=== PATIENT | female | born 1970 | race African-American/Black ===

== ENCOUNTER 2017-11-23 01:00 | Inpatient (IN) | payer MEDICAID ==
[~2017-11-23] VITALS: Ht 170.2 cm; Wt 110.6 kg
[2017-11-23 01:53] LABS: Basophils # (auto) 0.1 uL; Basophils % (auto) 0.7 % (0.0-2.0); Eosinophils # (auto) 0.2 uL; Eosinophils % (auto) 1.8 % (0.0-7.0); Hematocrit 41.1 % (36.0-46.0); Hemoglobin 13.4 g/dL (12.2-16.2); Lymphocytes # (auto) 2.3 uL; Lymphocytes % (auto) 24.6 % (10.0-50.0); Mean Corpuscular Hemoglobin 28.4 pg (28.0-32.0); Mean Corpuscular Hgb Conc. 32.6 g/dL (32.0-36.0); Monocytes # (auto) 0.6 uL; Neutrophils # (auto) 6.1 uL; Neutrophils % (auto) 65.9 % (37.0-80.0); Nucleated Red Blood Cells % 0.1 %; Platelet Count (auto) 250 10^3/uL (140-450); Red Blood Cells 4.73 10^6/uL (4.0-5.20); Red Cell Distribution Width 14.2 % (11.8-14.3); White Blood Cell 9.2 10^3/uL (4.4-10.8)
[2017-11-23 02:11] LABS: Albumin 3.7 g/dL (3.4-5.0); BUN/Creatinine Ratio 12.6; Calcium 8.6 mg/dL (8.5-10.1); Magnesium 2.1 mg/dL (1.6-2.6); Potassium 3.7 mmol/L (3.5-5.1)
[2017-11-23 02:28] LABS: Bilirubin, Total 0.3 mg/dL (0.2-1.0); Total Protein 8.3 g/dL (6.4-8.2)
[2017-11-23] MEDS ORDERED: ASPirin-EC 325mg tab PO ONE (03:15)
[2017-11-23] MEDS ORDERED: ONDANSETRON HCL 4 MG/2 ML VIAL ONE (03:25)
[2017-11-23] MEDS ORDERED: MORPHINE SULFATE 4 MG/ML SYR/VIAL ONE (03:25)
[2017-11-23] MEDS ORDERED: ONDANSETRON HCL 4 MG/2 ML VIAL IV ONE (03:30)
[2017-11-23] MEDS ORDERED: MORPHINE SULFATE 4 MG/ML SYR/VIAL IV ONE ×2 (03:30→04:45)
[2017-11-23] MEDS ORDERED: NITROGLYCERIN 0.4 MG SL TAB SL ONE (04:45)
[2017-11-23] MEDS ORDERED: METOPROLOL TARTRATE 25 MG TAB PO ONE (06:30)
[2017-11-23] MEDS ORDERED: MORPHINE SULF INJ 2 MG/ML SYRINGE 1ML IV PRN (06:30)
[2017-11-23] MEDS ORDERED: ONDANSETRON HCL 4 MG/2 ML VIAL IV PRN (06:30)
[2017-11-23] MEDS ORDERED: ACETAMINOPHEN 325 MG TAB PO PRN (06:30)
[2017-11-23] MEDS ORDERED: TEMAZEPAM 15 MG CAP PO PRN (06:30)
[2017-11-23] MEDS ORDERED: ATORVASTATIN 20 MG TAB PO ONE (06:30)
[2017-11-23] MEDS ORDERED: DEXTROSE (50%) 50ML SYRG IV PRN (06:30)
[2017-11-23] MEDS ORDERED: ENOXAPARIN SOD 120 MG/0.8 ML SYRINGE SC SCH (07:00)
[2017-11-23] MEDS: SODIUM CHLORIDE 0.9% 1,000 ML IV SCH ×2 (07:02→19:45)
[2017-11-23 07:26] LABS: Urine Blood TRACE /uL (Negative); Urine Mucus FEW (None Seen); Urine Specific Gravity 1.019 (1.001-1.035); Urine WBC 304 /hpf (0 - 5)
[2017-11-23 08:21] LABS: Urine Bacteria MANY /hpf (None Seen)
[2017-11-23] MEDS: METOPROLOL TARTRATE 25 MG TAB PO SCH ×2 (10:04→21:53)
[2017-11-23] MEDS: PANTOPRAZOLE 40 MG TAB PO SCH (10:04)
[2017-11-23] MEDS ORDERED: IODIXANOL 320MG/ML 100ML BTL IV ONE (10:31)
[2017-11-23] MEDS ORDERED: LIDOCAINE 2%HCL (LOCAL ANESTH.) INJ 10ml MDV ONE (10:31)
[2017-11-23] MEDS ORDERED: IOHEXOL 350 MG/ML 100ML IJ ONE (10:45)
[2017-11-23] MEDS ORDERED: MIDAZOLAM HCL 1MG/1ML-2 ML VIAL ONE (10:45)
[2017-11-23] MEDS ORDERED: ANGIOMAX 250 MG VIAL IV ONE ×2 (10:45→12:05)
[2017-11-23] MEDS ORDERED: SODIUM CHL 0.9% 50 ML ONE ×2 (10:45→12:05)
[2017-11-23] MEDS ORDERED: fentaNYL CITRATE 100 MCG/2 ML VL ONE (10:45)
[2017-11-23] MEDS ORDERED: EPINEPHrine HCL 1 MG/10 ML SYRG ONE (11:26)
[2017-11-23] MEDS ORDERED: ATROPINE SULF 1 MG/10ml SYR ONE (11:27)
[2017-11-23] MEDS ORDERED: EPTIFIBATIDE INJ (2MG/ML) 10ML VIAL IV ONE (11:27)
[2017-11-23] MEDS: InsuLIN REG 1unit/0.01ml Soln (100units/ml) SC SCH ×3 (12:00→23:36)
[2017-11-23] MEDS ORDERED: CLOPIDOGREL 300 MG TAB ONE (12:02)
[2017-11-23] MEDS: ACCU-CHEK COMFORT CURVE STRIP VI SCH ×3 (12:21→23:35)
[2017-11-23] MEDS ORDERED: cefTRIAXone 1GM/10ml IVPUSH 10 ML IV ONE (13:00)
[2017-11-23] MEDS ORDERED: OPTISON 3ml Vial for INJ IV ONE (14:23)
[2017-11-23] MEDS: HYDROcodone-ACET 5/325MG TAB PO PRN ×2 (17:31→22:02)
[2017-11-23] MEDS ORDERED: INSLISPI SC (18:00)
[2017-11-23] MEDS ORDERED: GLIP-116 PO (18:00)
[2017-11-23] MEDS ORDERED: METF-929 PO (18:00)
[2017-11-23 20:00] VITALS: BP 138/79
[2017-11-23 22:00] VITALS: BP 139/79
[2017-11-23] MEDS ORDERED: ATORVASTATIN 20 MG TAB PO SCH ×2 (22:00)
[2017-11-23] MEDS: NITROGLYCERIN 0.4 MG SL TAB SL PRN ×2 (22:40→22:45)
[2017-11-24 05:00] VITALS: BP 100/67
[2017-11-24 05:56] LABS: Basophils # (auto) 0 uL; Basophils % (auto) 0.4 % (0.0-2.0); Eosinophils # (auto) 0.1 uL; Eosinophils % (auto) 0.6 % (0.0-7.0); Hematocrit 37.9 % (36.0-46.0); Hemoglobin 12.4 g/dL (12.2-16.2); Lymphocytes # (auto) 1.8 uL; Lymphocytes % (auto) 19.6 % (10.0-50.0); Mean Corpuscular Hgb Conc. 32.8 g/dL (32.0-36.0); Mean Corpuscular Volume 88.6 fL (80.0-100.0); Monocytes # (auto) 0.5 uL; Monocytes % (auto) 5.9 % (0.0-12.0); Neutrophils # (auto) 6.7 uL; Neutrophils % (auto) 73.5 % (37.0-80.0); Platelet Count (auto) 223 10^3/uL (140-450); Red Blood Cells 4.28 10^6/uL (4.0-5.20); Red Cell Distribution Width 14.4 % (11.8-14.3); White Blood Cell 9.1 10^3/uL (4.4-10.8)
[2017-11-24 06:23] LABS: Albumin 3.2 g/dL (3.4-5.0); BUN/Creatinine Ratio 18.2; Calcium 8.1 mg/dL (8.5-10.1); Potassium 4.1 mmol/L (3.5-5.1)
[2017-11-24 06:27] LABS: Bilirubin, Total 0.5 mg/dL (0.2-1.0); Total Protein 7.1 g/dL (6.4-8.2)
[2017-11-24] MEDS: ACCU-CHEK COMFORT CURVE STRIP VI SCH ×2 (06:28→11:23)
[2017-11-24] MEDS: InsuLIN REG 1unit/0.01ml Soln (100units/ml) SC SCH ×2 (06:28→12:17)
[2017-11-24 08:00] VITALS: BP 114/71
[2017-11-24 09:00] VITALS: BP 114/71
[2017-11-24] MEDS ORDERED: cefTRIAXone 1GM/10ml IVPUSH 10 ML IV SCH (09:00)
[2017-11-24] MEDS: SODIUM CHLORIDE 0.9% 1,000 ML IV SCH (09:05)
[2017-11-24] MEDS: PANTOPRAZOLE 40 MG TAB PO SCH (09:07)
[2017-11-24] MEDS: METOPROLOL TARTRATE 25 MG TAB PO SCH (09:08)
[2017-11-24] MEDS ORDERED: LISINOPRIL 5 MG TAB PO SCH (10:00)
[2017-11-24] MEDS ORDERED: CLOPIDOGREL BISULFATE 75 MG TAB PO SCH (10:00)
[2017-11-24] MEDS ORDERED: ENOXAPARIN SOD 40 MG/0.4 ML SYRINGE SC SCH (10:00)
[2017-11-24] MEDS ORDERED: ASPirin 81 mg TAB PO SCH (10:00)
[2017-11-24] MEDS ORDERED: ASPI81CH43 PO (11:40)
[2017-11-24] MEDS ORDERED: PANT40T PO (11:40)
[2017-11-24] MEDS ORDERED: LISI-275 PO (11:40)
[2017-11-24] MEDS ORDERED: NITR0.4S29 SL (11:40)
[2017-11-24] MEDS ORDERED: MET25T PO (11:40)
[2017-11-24] MEDS ORDERED: ATOR20TA50 PO (11:40)
[2017-11-24] MEDS ORDERED: LEVOFLOXACIN 500 MG TAB PO ONE (11:45)
[2017-11-24] MEDS: HYDROcodone-ACET 5/325MG TAB PO PRN (12:25)
[2017-11-24 13:00] VITALS: BP 112/74
[2017-11-24 16:36] VITALS: BP 121/79
== END 2017-11-24 17:12 | disposition home or self-care (01) | DRG 174 ==
LOC: ER 01:03 → TELE 01:04 → TELE-WESTW 17:23
PROVIDERS: ADMIT Nurse Practitioner; ATTEND Internal Medicine
PROC: 027034Z Dilation of Coronary Artery, One Artery with Drug-eluting Intraluminal Device, Percutaneous Approach (ICD-10-PCS; principal; 2017-11-23)
PROC: 4A023N7 Measurement of Cardiac Sampling and Pressure, Left Heart, Percutaneous Approach (ICD-10-PCS; 2017-11-23)
PROC: B2111ZZ Fluoroscopy of Multiple Coronary Arteries using Low Osmolar Contrast (ICD-10-PCS; 2017-11-23)
PROC: B2151ZZ Fluoroscopy of Left Heart using Low Osmolar Contrast (ICD-10-PCS; 2017-11-23)
PROC: 02703ZZ Dilation of Coronary Artery, One Artery, Percutaneous Approach (ICD-10-PCS; 2017-11-23)
DX: I21.4 Non-ST elevation (NSTEMI) myocardial infarction (principal); I50.31 Acute diastolic (congestive) heart failure; E11.65 Type 2 diabetes mellitus with hyperglycemia; E11.21 Type 2 diabetes mellitus with diabetic nephropathy; E66.01 Morbid (severe) obesity due to excess calories; I11.0 Hypertensive heart disease with heart failure; I08.0 Rheumatic disorders of both mitral and aortic valves; N39.0 Urinary tract infection, site not specified; J98.11 Atelectasis; I25.119 Atherosclerotic heart disease of native coronary artery with unspecified angina pectoris; I25.5 Ischemic cardiomyopathy; I25.2 Old myocardial infarction; Z82.49 Family history of ischemic heart disease and other diseases of the circulatory system; Z91.19 Patient's noncompliance with other medical treatment and regimen; Z88.0 Allergy status to penicillin; Z68.38 Body mass index [BMI] 38.0-38.9, adult
CPT/HCPCS: 36415; 71045; 80053; 81001; 81025; 82962; 83735; 83880; 84484; 85025; 87086; 92921; 92928; 93005; 93306; 93458; 96372; 96374; 96375; 96376; 99152; 99291; A6257; C1874; J1815; J2001; J2250; J2405; Q9956; Q9967

== ENCOUNTER 2021-09-21 13:10 | Inpatient (IN) | payer MEDICAID ==
[~2021-09-21] VITALS: Ht 170.2 cm; Wt 118.5 kg
[~2021-09-21 13:10] MED LIST: ASPI81CH43 PO; ATOR20TA50 PO; GLIP10TA9 PO; INSLISPI SC; LISI-275 PO; MET25T PO; METF-929 PO; NITR0.4S29 SL; PANT40T PO
[2021-09-21] MEDS ORDERED: ASPirin 81 mg TAB PO ONE (14:00)
[2021-09-21] MEDS ORDERED: ENOXAPARIN SOD 100 MG/1 ML SYRINGE SC ONE (14:00)
[2021-09-21 15:32] LABS: Basophils # (auto) 0.1 10 ^3/uL (0-0.2); Basophils % (auto) 0.6 % (0.0-2.0); Eosinophils # (auto) 0.1 10 ^3/uL (0-0.8); Eosinophils % (auto) 1.7 % (0.0-7.0); Hematocrit 41.3 % (36.0-46.0); Hemoglobin 13.8 g/dL (12.2-16.2); Lymphocytes # (auto) 2.4 10 ^3/uL (0.4-5.4); Lymphocytes % (auto) 27.7 % (10.0-50.0); Mean Corpuscular Hemoglobin 28.4 pg (28.0-32.0); Mean Corpuscular Hgb Conc. 33.4 g/dL (32.0-36.0); Mean Corpuscular Volume 85.1 fL (80.0-100.0); Monocytes # (auto) 0.6 10 ^3/uL (0-1.3); Monocytes % (auto) 7.4 % (0.0-12.0); Neutrophils # (auto) 5.4 10 ^3/uL (1.6-8.6); Neutrophils % (auto) 62.6 % (37.0-80.0); Nucleated Red Blood Cells % 0.1 %; Red Blood Cells 4.85 10^6/uL (4.0-5.20); Red Cell Distribution Width 13.9 % (11.8-14.3); White Blood Cell 8.6 10^3/uL (4.4-10.8)
[2021-09-21 15:46] LABS: Albumin 3.9 g/dL (3.4-5.0); BUN/Creatinine Ratio 22.5; Calcium 9.5 mg/dL (8.5-10.1); Potassium 3.7 mmol/L (3.5-5.1)
[2021-09-21 15:47] LABS: INR 1.05 (0.9-1.15); Partial Thromboplastin Time 27.3 sec (23.6-33.0)
[2021-09-21 15:49] LABS: Bilirubin, Total 0.4 mg/dL (0.2-1.0); Total Protein 8.6 g/dL (6.4-8.2)
[2021-09-21] MEDS ORDERED: MORPHINE SULFATE 4 MG/ML SYR/VIAL IV ONE ×2 (17:00→20:15)
[2021-09-21] MEDS ORDERED: HEPARIN DRIP/D5W 100UNITS/ML 250 ML IV SCH (17:00)
[2021-09-21] MEDS ORDERED: HEPARIN SODIUM (PORCINE) 5000 UNITS/ML 1ML VIAL IV ONE (17:00)
[2021-09-21] MEDS: HEPARIN DRIP/D5W 100UNITS/ML 250 ML IV SCH (18:05)
[2021-09-21 19:29] LABS: Urine Bacteria FEW /hpf (None Seen); Urine Blood Negative /uL (Negative); Urine Hyaline Cast FEW /lpf (0 - 2); Urine Specific Gravity 1.029 (1.001-1.035); Urine WBC 38 /hpf (0 - 5)
[2021-09-21] MEDS ORDERED: diphenhdrAMINE HCL 50 MG/1 ML VL IV ONE (21:45)
[2021-09-21] MEDS ORDERED: MORPHINE SULFATE INJ 2 MG/ml SYRG IV PRN (22:45)
[2021-09-21] MEDS ORDERED: DOCUSATE SOD 100 MG CAP PO PRN (22:45)
[2021-09-21] MEDS ORDERED: DEXTROSE (50%) 50ML SYRG IV PRN (22:45)
[2021-09-21] MEDS ORDERED: NITROGLYCERIN 0.4 MG SL TAB SL PRN (22:45)
[2021-09-21] MEDS: SODIUM CHLORIDE 0.9% 1,000 ML IV SCH (23:46)
[2021-09-22] MEDS ORDERED: levoFLOXacin 500MG 100 ML IV ONE
[2021-09-22 03:02] LABS: Basophils # (auto) 0 10 ^3/uL (0-0.2); Basophils % (auto) 0.5 % (0.0-2.0); Eosinophils # (auto) 0.1 10 ^3/uL (0-0.8); Eosinophils % (auto) 1.2 % (0.0-7.0); Hematocrit 39.7 % (36.0-46.0); Hemoglobin 13.2 g/dL (12.2-16.2); Lymphocytes % (auto) 18.5 % (10.0-50.0); Mean Corpuscular Hemoglobin 28.8 pg (28.0-32.0); Mean Corpuscular Hgb Conc. 33.3 g/dL (32.0-36.0); Mean Corpuscular Volume 86.5 fL (80.0-100.0); Monocytes # (auto) 0.7 10 ^3/uL (0-1.3); Monocytes % (auto) 6.8 % (0.0-12.0); Neutrophils # (auto) 7.9 10 ^3/uL (1.6-8.6); Nucleated Red Blood Cells % 0.2 %; Red Blood Cells 4.58 10^6/uL (4.0-5.20); Red Cell Distribution Width 13.9 % (11.8-14.3); White Blood Cell 10.8 10^3/uL (4.4-10.8)
[2021-09-22 04:35] LABS: Albumin 3.6 g/dL (3.4-5.0); Anion Gap 10 (5-15); Blood Urea Nitrogen 21 mg/dL (7-18); Carbon Dioxide 19 mmol/L (21-32); Chloride 107 mmol/L (98-107); Glucose 235 mg/dL (74-106); Potassium 4.2 mmol/L (3.5-5.1); Sodium 136 mmol/L (136-145)
[2021-09-22 04:37] LABS: Alanine Aminotransferase 37 U/L (13-56); Aspartate Aminotransferase 69 U/L (15-37); BUN/Creatinine Ratio 25.3; GFR African American 94 mL/min; GFR Non-African American 77 mL/min
[2021-09-22 04:40] LABS: Alkaline Phosphatase 91 U/L (45-117); Bilirubin, Total 0.3 mg/dL (0.2-1.0); Total Protein 7.9 g/dL (6.4-8.2)
[2021-09-22] MEDS ORDERED: HEPARIN SODIUM (PORCINE) 5000 UNITS/ML 1ML VIAL ONE (06:52)
[2021-09-22] MEDS: InsuLIN REG 1unit/0.01ml Soln (100units/ml) SC SCH ×4 (08:07→21:37)
[2021-09-22] MEDS: FAMOTIDINE (10MG/ML) 2ML VL IV SCH ×2 (08:08→21:45)
[2021-09-22] MEDS: ASPirin 81 mg TAB PO SCH (08:08)
[2021-09-22] MEDS: levoFLOXacin 500MG 100 ML IV SCH (08:08)
[2021-09-22] MEDS: ACCU-CHEK COMFORT CURVE STRIP VI SCH ×4 (08:08→21:45)
[2021-09-22] MEDS: HYDROcodone-ACET 5/325MG TAB PO PRN (08:09)
[2021-09-22] MEDS: MORPHINE SULFATE INJ 2 MG/ml SYRG IV PRN ×2 (13:01→17:48)
[2021-09-22] MEDS: HEPARIN DRIP/D5W 100UNITS/ML 250 ML IV SCH (13:03)
[2021-09-22] MEDS: diphenhdrAMINE HCL 50 MG/1 ML VL IV PRN ×2 (13:04→17:49)
[2021-09-22 14:16] LABS: INR 1.06 (0.9-1.15); Partial Thromboplastin Time 51.9 sec (23.6-33.0)
[2021-09-22] MEDS: SODIUM CHLORIDE 0.9% 1,000 ML IV SCH (16:42)
[2021-09-22] MEDS ORDERED: guaiFENesin-DM 100/10mg/5ml SYR PO PRN (16:45)
[2021-09-22] MEDS: NITROGLYCERIN 0.2MG/HR TOPICAL PATCH TD SCH (17:48)
[2021-09-22 19:13] LABS: INR 1.05 (0.9-1.15)
[2021-09-22] MEDS: ATORVASTATIN 20 MG TAB PO SCH (21:44)
[2021-09-23] VITALS (7 sets, daily range): BP systolic 118–135; BP diastolic 67–79
[2021-09-23 07:09] LABS: BUN/Creatinine Ratio 12.6; Calcium 8.9 mg/dL (8.5-10.1); Potassium 3.9 mmol/L (3.5-5.1)
[2021-09-23] MEDS: ACCU-CHEK COMFORT CURVE STRIP VI SCH ×4 (07:10→21:20)
[2021-09-23] MEDS: InsuLIN REG 1unit/0.01ml Soln (100units/ml) SC SCH ×4 (07:50→21:29)
[2021-09-23] MEDS: SODIUM CHLORIDE 0.9% 1,000 ML IV SCH ×2 (08:05→21:34)
[2021-09-23] MEDS: ACETAMINOPHEN 325 MG TAB PO PRN (10:43)
[2021-09-23] MEDS: ASPirin 81 mg TAB PO SCH (10:43)
[2021-09-23] MEDS: levoFLOXacin 500MG 100 ML IV SCH (10:43)
[2021-09-23] MEDS: FAMOTIDINE (10MG/ML) 2ML VL IV SCH ×2 (10:44→21:21)
[2021-09-23] MEDS: ONDANSETRON HCL 4 MG/2 ML VIAL IV PRN ×2 (10:46→19:03)
[2021-09-23] MEDS: MORPHINE SULFATE INJ 2 MG/ml SYRG IV PRN (10:56)
[2021-09-23] MEDS: diphenhdrAMINE HCL 50 MG/1 ML VL IV PRN (11:00)
[2021-09-23] MEDS ORDERED: IODIXANOL 320MG/ML 100ML BTL IV ONE (12:24)
[2021-09-23] MEDS ORDERED: LIDOCAINE 2%HCL (LOCAL ANESTH.) INJ 10ml MDV ONE ×2 (12:24→13:25)
[2021-09-23] MEDS ORDERED: IOHEXOL 350 MG/ML 100ML IJ ONE (13:25)
[2021-09-23] MEDS ORDERED: ANGIOMAX 250 MG VIAL IV ONE (13:31)
[2021-09-23] MEDS ORDERED: SODIUM CHL 0.9% 50 ML ONE (13:31)
[2021-09-23] MEDS ORDERED: MIDAZOLAM HCL 2MG/2ML 2ml VIAL (1mg/ml) ONE (13:31)
[2021-09-23] MEDS ORDERED: fentaNYL CITRATE 100 MCG/2 ML VL ONE (13:31)
[2021-09-23] MEDS ORDERED: TICAGRELOR 90 MG TAB ONE (14:19)
[2021-09-23] MEDS: HYDROmorphone HCL 2 MG/ML VL/or syr IV PRN (14:46)
[2021-09-23] MEDS ORDERED: METO25TA5 PO (17:33)
[2021-09-23] MEDS ORDERED: AMLO-489 PO (17:33)
[2021-09-23] MEDS ORDERED: ALBU108A5 IN (17:33)
[2021-09-23] MEDS ORDERED: FLUC150T2 PO (17:33)
[2021-09-23] MEDS ORDERED: PREG150C PO (17:33)
[2021-09-23] MEDS ORDERED: INSLISPI SC (17:33)
[2021-09-23] MEDS: NITROGLYCERIN 0.2MG/HR TOPICAL PATCH TD SCH (17:43)
[2021-09-23] MEDS ORDERED: HYDROmorphone HCL 2 MG/ML VL/or syr IV ONE (18:45)
[2021-09-23] MEDS: TICAGRELOR 90 MG TAB PO SCH (21:24)
[2021-09-23] MEDS: ATORVASTATIN 20 MG TAB PO SCH (21:24)
[2021-09-24] MEDS: ONDANSETRON HCL 4 MG/2 ML VIAL IV PRN (01:02)
[2021-09-24] MEDS: HYDROmorphone HCL 2 MG/ML VL/or syr IV PRN ×3 (01:04→18:49)
[2021-09-24 05:00] VITALS: BP 136/75
[2021-09-24] MEDS: ACCU-CHEK COMFORT CURVE STRIP VI SCH ×4 (06:15→21:25)
[2021-09-24] MEDS: InsuLIN REG 1unit/0.01ml Soln (100units/ml) SC SCH ×4 (06:15→21:44)
[2021-09-24 08:06] LABS: Magnesium 2.2 mg/dL (1.6-2.6)
[2021-09-24 09:00] VITALS: BP 124/54
[2021-09-24] MEDS: levoFLOXacin 500MG 100 ML IV SCH (09:06)
[2021-09-24] MEDS: ASPirin 81 mg TAB PO SCH (09:06)
[2021-09-24] MEDS: TICAGRELOR 90 MG TAB PO SCH ×2 (09:06→21:24)
[2021-09-24] MEDS: FAMOTIDINE (10MG/ML) 2ML VL IV SCH ×2 (10:00→21:25)
[2021-09-24 13:03] VITALS: BP 127/70
[2021-09-24] MEDS: HYDROcodone-ACET 5/325MG TAB PO PRN (14:19)
[2021-09-24] MEDS: SODIUM CHLORIDE 0.9% 1,000 ML IV SCH (18:25)
[2021-09-24] MEDS: NITROGLYCERIN 0.2MG/HR TOPICAL PATCH TD SCH (18:26)
[2021-09-24] MEDS: ATORVASTATIN 20 MG TAB PO SCH (21:25)
[2021-09-24 22:00] VITALS: BP 118/40
[2021-09-24] MEDS: ACETAMINOPHEN 325 MG TAB PO PRN (22:07)
[2021-09-25 05:22] VITALS: BP 114/58
[2021-09-25] MEDS: ACCU-CHEK COMFORT CURVE STRIP VI SCH ×2 (06:15→12:07)
[2021-09-25] MEDS: HYDROmorphone HCL 2 MG/ML VL/or syr IV PRN (06:23)
[2021-09-25] MEDS: InsuLIN REG 1unit/0.01ml Soln (100units/ml) SC SCH ×2 (06:25→12:30)
[2021-09-25 09:00] VITALS: BP 115/70
[2021-09-25] MEDS: TICAGRELOR 90 MG TAB PO SCH (09:48)
[2021-09-25] MEDS: ASPirin 81 mg TAB PO SCH (09:48)
[2021-09-25] MEDS: levoFLOXacin 500MG 100 ML IV SCH (09:48)
[2021-09-25] MEDS: FAMOTIDINE (10MG/ML) 2ML VL IV SCH (09:48)
[2021-09-25 12:47] VITALS: BP 137/71
[2021-09-25] MEDS ORDERED: TICA90TA PO (13:46)
== END 2021-09-25 15:08 | disposition home or self-care (01) | DRG 174 ==
LOC: ER 13:10 → OVERFLOW 22:38 → TELE-WESTW 09-23 16:02
PROVIDERS: ADMIT Nurse Practitioner Family; ATTEND Internal Medicine Geriatric Medicine
PROC: B211YZZ Fluoroscopy of Multiple Coronary Arteries using Other Contrast (ICD-10-PCS; principal; 2021-09-23)
PROC: B215YZZ Fluoroscopy of Left Heart using Other Contrast (ICD-10-PCS; 2021-09-23)
PROC: 027135Z Dilation of Coronary Artery, Two Arteries with Two Drug-eluting Intraluminal Devices, Percutaneous Approach (ICD-10-PCS; 2021-09-23)
PROC: 02703ZZ Dilation of Coronary Artery, One Artery, Percutaneous Approach (ICD-10-PCS; 2021-09-23)
PROC: 4A033BC Measurement of Arterial Pressure, Coronary, Percutaneous Approach (ICD-10-PCS; 2021-09-23)
PROC: 4A033BC Measurement of Arterial Pressure, Coronary, Percutaneous Approach (ICD-10-PCS; 2021-09-23)
DX: I21.4 Non-ST elevation (NSTEMI) myocardial infarction (principal); I50.30 Unspecified diastolic (congestive) heart failure; I11.0 Hypertensive heart disease with heart failure; N39.0 Urinary tract infection, site not specified; E11.65 Type 2 diabetes mellitus with hyperglycemia; E66.01 Morbid (severe) obesity due to excess calories; E78.5 Hyperlipidemia, unspecified; Z20.822 Contact with and (suspected) exposure to COVID-19; I25.10 Atherosclerotic heart disease of native coronary artery without angina pectoris; I25.5 Ischemic cardiomyopathy; Z79.02 Long term (current) use of antithrombotics/antiplatelets; Z79.82 Long term (current) use of aspirin; Z82.49 Family history of ischemic heart disease and other diseases of the circulatory system; Z68.41 Body mass index [BMI] 40.0-44.9, adult; Z88.0 Allergy status to penicillin; Z91.018 Allergy to other foods; I25.2 Old myocardial infarction
CPT/HCPCS: 36415; 71045; 80048; 80053; 80061; 81001; 82962; 83036; 83735; 83880; 84443; 84484; 84702; 85025; 85610; 85730; 87086; 92920; 92928; 92929; 93005; 93458; 93571; 96374; 96375; 96376; 99152; 99153; C1874; C1887; G0378; J1815; J1956; J2001; J2250; J2405; J3490; Q9967

== ENCOUNTER 2023-03-15 15:17 | Inpatient (IN) | payer MEDICAID ==
[~2023-03-15] VITALS: Ht 152.4 cm; Wt 70.2 kg
[~2023-03-15 15:17] MED LIST changes: +ALBU108A5 IN; +AMLO1TAB22 PO; +FLUC150T47 PO; +METO25TA5 PO; +PREG150C PO; +TICA90TA PO
[2023-03-15] MEDS ORDERED: ASPirin 81 mg TAB PO ONE (15:45)
[2023-03-15 15:56] LABS: Basophils # (auto) 0.1 10 ^3/uL (0-0.2); Basophils % (auto) 0.6 % (0.0-2.0); Eosinophils # (auto) 0.1 10 ^3/uL (0-0.8); Eosinophils % (auto) 0.9 % (0.0-7.0); Hematocrit 36.6 % (36.0-46.0); Hemoglobin 11.7 g/dL (12.2-16.2); Lymphocytes # (auto) 1.4 10 ^3/uL (0.4-5.4); Lymphocytes % (auto) 15.2 % (10.0-50.0); Mean Corpuscular Hemoglobin 27.6 pg (28.0-32.0); Mean Corpuscular Volume 86.3 fL (80.0-100.0); Monocytes # (auto) 0.5 10 ^3/uL (0-1.3); Monocytes % (auto) 5.8 % (0.0-12.0); Neutrophils % (auto) 77.5 % (37.0-80.0); Nucleated Red Blood Cells % 0.1 %; Red Blood Cells 4.24 10^6/uL (4.0-5.20); Red Cell Distribution Width 13.9 % (11.8-14.3)
[2023-03-15 16:15] LABS: Alanine Aminotransferase 23 U/L (7-40); Albumin 4.3 g/dL (3.2-4.8); Alkaline Phosphatase 99 U/L (46-116); Anion Gap 11 (5-15); Aspartate Aminotransferase 26 U/L (13-40); BUN/Creatinine Ratio 19.9 (10.0-20.0); Blood Urea Nitrogen 28 mg/dL (9-23); Calcium 9.2 mg/dL (8.7-10.4); Carbon Dioxide 25 mmol/L (20-30); Chloride 106 mmol/L (98-107); Glucose 162 mg/dL (74-106); Magnesium 1.9 mg/dL (1.6-2.6); Potassium 3.6 mmol/L (3.5-5.1); Sodium 142 mmol/L (136-145)
[2023-03-15 16:16] LABS: Bilirubin, Total 0.7 mg/dL (0.2-1.0); Total Protein 7.5 g/dL (5.7-8.2)
[2023-03-15] MEDS ORDERED: HEPARIN SODIUM (PORCINE) 5000 UNITS/ML 1ML VIAL IV ONE (16:30)
[2023-03-15] MEDS ORDERED: HEPARIN DRIP/D5W 100UNITS/ML 250 ML IV SCH (16:30)
[2023-03-15 17:56] LABS: INR 1.07 (0.9-1.15); Partial Thromboplastin Time 28.1 SEC (24.5-34.5); Prothrombin Time 11.2 sec (9.3-11.8)
[2023-03-15] MEDS ORDERED: ONDANSETRON HCL 4 MG/2 ML VIAL IV ONE (19:00)
[2023-03-15 19:06] VITALS: PULSE 89
[2023-03-15 19:07] VITALS: RESP 13; O2SAT 97
[2023-03-15 19:40] VITALS: PULSE 92; RESP 18; O2SAT 95
[2023-03-15] MEDS ORDERED: NITROGLYCERIN 0.4 MG SL TAB SL PRN (21:30)
[2023-03-15] MEDS ORDERED: FUROSEMIDE 20 MG/2 ML VIAL IV ONE (21:30)
[2023-03-15] MEDS ORDERED: MORPHINE SULFATE INJ 2 MG/ml SYRG IV PRN (21:30)
[2023-03-15] MEDS ORDERED: ALBUTEROL MEDNEB 2.5 mg/3ml NEB NEB PRN (21:30)
[2023-03-15] MEDS ORDERED: DEXTROSE (50%) 50ML SYRG IV PRN (21:30)
[2023-03-15] MEDS ORDERED: ACETAMINOPHEN 325 MG TAB PO PRN (21:30)
[2023-03-15] MEDS ORDERED: ONDANSETRON HCL 4 MG/2 ML VIAL IV PRN (21:30)
[2023-03-15] MEDS ORDERED: AZITHROMYCIN 500MG/ 250ML 250 ML IV ONE (21:30)
[2023-03-15] MEDS ORDERED: TICAGRELOR 90 MG TAB PO SCH (22:00)
[2023-03-15] MEDS: InsuLIN REG 1unit/0.01ml Soln (100units/ml) SC SCH (22:36)
[2023-03-15] MEDS: ACCU-CHEK COMFORT CURVE STRIP VI SCH (22:36)
[2023-03-15] MEDS: ATORVASTATIN 20 MG TAB PO SCH (22:47)
[2023-03-15] MEDS: METOPROLOL TARTRATE 25 MG TAB PO SCH (22:48)
[2023-03-16] VITALS (19 sets, daily range): BP systolic 93–149; BP diastolic 52–83; PULSE 66–86; RESP 12–22; TEMP 97.8–99.3; O2SAT 95–100
[2023-03-16 03:03] LABS: INR 1.1 (0.9-1.15); Partial Thromboplastin Time 31.2 SEC (24.5-34.5); Prothrombin Time 11.5 sec (9.3-11.8)
[2023-03-16] MEDS ORDERED: HEPARIN SODIUM (PORCINE) 5000 UNITS/ML 1ML VIAL IV ONE (03:45)
[2023-03-16 05:50] LABS: Basophils # (auto) 0.1 10 ^3/uL (0-0.2); Basophils % (auto) 0.9 % (0.0-2.0); Eosinophils # (auto) 0.4 10 ^3/uL (0-0.8); Eosinophils % (auto) 4.1 % (0.0-7.0); Hematocrit 31.8 % (36.0-46.0); Hemoglobin 10.5 g/dL (12.2-16.2); Lymphocytes # (auto) 2.9 10 ^3/uL (0.4-5.4); Lymphocytes % (auto) 29.7 % (10.0-50.0); Mean Corpuscular Hemoglobin 28.4 pg (28.0-32.0); Mean Corpuscular Hgb Conc. 32.9 g/dL (32.0-36.0); Mean Corpuscular Volume 86.3 fL (80.0-100.0); Monocytes # (auto) 0.9 10 ^3/uL (0-1.3); Monocytes % (auto) 9.8 % (0.0-12.0); Neutrophils # (auto) 5.3 10 ^3/uL (1.6-8.6); Neutrophils % (auto) 55.5 % (37.0-80.0); Red Blood Cells 3.68 10^6/uL (4.0-5.20); White Blood Cell 9.6 10^3/uL (4.4-10.8)
[2023-03-16 06:05] LABS: Alanine Aminotransferase 16 U/L (7-40); Alkaline Phosphatase 69 U/L (46-116); Anion Gap 9 (5-15); BUN/Creatinine Ratio 15.5 (10.0-20.0); Blood Urea Nitrogen 23 mg/dL (9-23); Calcium 9.3 mg/dL (8.5-10.1); Carbon Dioxide 27 mmol/L (20-30); Chloride 105 mmol/L (98-107); Glucose 101 mg/dL (74-106); Potassium 3.5 mmol/L (3.5-5.1); Sodium 141 mmol/L (136-145)
[2023-03-16 06:06] LABS: Albumin 3.8 g/dL (3.2-4.8)
[2023-03-16 06:07] LABS: Aspartate Aminotransferase 21 U/L (13-40); Bilirubin, Total 0.6 mg/dL (0.2-1.0); Total Protein 6.8 g/dL (5.7-8.2)
[2023-03-16] MEDS: ACCU-CHEK COMFORT CURVE STRIP VI SCH ×3 (06:22→21:15)
[2023-03-16] MEDS: FUROSEMIDE 20 MG TAB PO SCH ×2 (06:46→19:01)
[2023-03-16] MEDS: InsuLIN REG 1unit/0.01ml Soln (100units/ml) SC SCH ×3 (07:00→21:16)
[2023-03-16] MEDS ORDERED: HEPARIN IN NS 1000Units/500mL 1,500 ML ONE (08:26)
[2023-03-16] MEDS ORDERED: IODIXANOL 320MG/ML 100ML BTL IV ONE (08:26)
[2023-03-16 08:31] LABS: Triglycerides 56 mg/dL (< 150)
[2023-03-16 08:32] LABS: LDL Cholesterol 169 mg/dL (< 100)
[2023-03-16 08:33] LABS: Cholesterol 223 mg/dL (< 200); HDL Cholesterol 49 mg/dL (40-59)
[2023-03-16] MEDS ORDERED: fentaNYL CITRATE 100 MCG/2 ML VL ONE (09:19)
[2023-03-16] MEDS ORDERED: ANGIOMAX 250 MG VIAL IV ONE (09:19)
[2023-03-16] MEDS ORDERED: SODIUM CHL 0.9% 0 ML ONE (09:20)
[2023-03-16] MEDS ORDERED: MIDAZOLAM HCL 2MG/2ML 2ml VIAL (1mg/ml) ONE (09:20)
[2023-03-16] MEDS ORDERED: LIDOCAINE 2%HCL (LOCAL ANESTH.) INJ 20ML MDV ONE (09:23)
[2023-03-16] MEDS ORDERED: SODIUM CHLORIDE 0.9% 500 ML IV ONE (09:30)
[2023-03-16] MEDS ORDERED: ASPirin 81 mg TAB PO SCH (10:00)
[2023-03-16] MEDS ORDERED: LOSARTAN POTASSIUM 50 MG TAB PO SCH (10:00)
[2023-03-16] MEDS ORDERED: VERAPAMIL 2.5MG/ML INJ 2ML VIAL IV ONE (10:09)
[2023-03-16] MEDS ORDERED: HEPARIN SODIUM (PORCINE) 5000 UNITS/ML 1ML VIAL ONE (10:09)
[2023-03-16 11:56] LABS: INR 1.1 (0.9-1.15); Partial Thromboplastin Time 43.8 SEC (24.5-34.5); Prothrombin Time 11.5 sec (9.3-11.8)
[2023-03-16] MEDS ORDERED: HEPARIN DRIP/D5W 100UNITS/ML 250 ML IV SCH (12:15)
[2023-03-16] MEDS: METOPROLOL TARTRATE 25 MG TAB PO SCH ×2 (15:21→21:13)
[2023-03-16] MEDS ORDERED: HEPARIN DRIP/D5W 100UNITS/ML 250 ML IV ONE (15:29)
[2023-03-16 18:47] LABS: INR 1.09 (0.9-1.15); Partial Thromboplastin Time 53.2 SEC (24.5-34.5); Prothrombin Time 11.4 sec (9.3-11.8)
[2023-03-16] MEDS: ATORVASTATIN 20 MG TAB PO SCH (21:11)
[2023-03-16] MEDS ORDERED: AZITHROMYCIN 500MG/ 250ML 250 ML IV SCH (22:00)
[2023-03-17] MEDS ORDERED: ASPirin 81 mg TAB PO SCH (10:00)
== END 2023-03-16 23:59 | disposition short-term general hospital (02) | DRG 190 ==
LOC: ER 15:17 → OVERFLOW 21:29 → TELE 03-16 08:41 → TELE-WESTW 03-16 16:41
PROVIDERS: ADMIT Nurse Practitioner; ATTEND Internal Medicine
PROC: 4A023N7 Measurement of Cardiac Sampling and Pressure, Left Heart, Percutaneous Approach (ICD-10-PCS; principal; 2023-03-16)
PROC: B211YZZ Fluoroscopy of Multiple Coronary Arteries using Other Contrast (ICD-10-PCS; 2023-03-16)
DX: I21.4 Non-ST elevation (NSTEMI) myocardial infarction (principal); I50.43 Acute on chronic combined systolic (congestive) and diastolic (congestive) heart failure; N17.9 Acute kidney failure, unspecified; I11.0 Hypertensive heart disease with heart failure; E11.22 Type 2 diabetes mellitus with diabetic chronic kidney disease; I13.0 Hypertensive heart and chronic kidney disease with heart failure and stage 1 through stage 4 chronic kidney disease, or unspecified chronic kidney disease; E66.9 Obesity, unspecified; E78.5 Hyperlipidemia, unspecified; I25.10 Atherosclerotic heart disease of native coronary artery without angina pectoris; N18.30 Chronic kidney disease, stage 3 unspecified; Z88.0 Allergy status to penicillin; Z91.018 Allergy to other foods; Z68.30 Body mass index [BMI] 30.0-30.9, adult; Z91.199 Patient's noncompliance with other medical treatment and regimen due to unspecified reason; Z79.4 Long term (current) use of insulin; Z82.49 Family history of ischemic heart disease and other diseases of the circulatory system; Z83.3 Family history of diabetes mellitus; Z95.5 Presence of coronary angioplasty implant and graft
CPT/HCPCS: 36415; 71046; 71275; 80053; 80061; 82962; 83036; 83735; 83880; 84443; 84484; 85025; 85379; 85610; 85730; 86850; 86900; 86901; 93005; 93306; 99152; 99291; G0378; J1815; J2250; J2405; Q9967

== ENCOUNTER 2023-11-13 20:32 | Emergency (ER) | payer MEDICAID ==
[~2023-11-13] VITALS: Ht 170.2 cm; Wt 116.8 kg
[2023-11-13 21:57] LABS: Basophils # (auto) 0.1 10 ^3/uL (0-0.2); Basophils % (auto) 0.6 % (0.0-2.0); Eosinophils # (auto) 0.3 10 ^3/uL (0-0.8); Eosinophils % (auto) 2.8 % (0.0-7.0); Hematocrit 36.9 % (36.0-46.0); Hemoglobin 12.3 g/dL (12.2-16.2); Lymphocytes # (auto) 3.3 10 ^3/uL (0.4-5.4); Lymphocytes % (auto) 33.7 % (10.0-50.0); Mean Corpuscular Hemoglobin 29.1 pg (28.0-32.0); Mean Corpuscular Hgb Conc. 33.4 g/dL (32.0-36.0); Mean Corpuscular Volume 87.1 fL (80.0-100.0); Monocytes # (auto) 0.9 10 ^3/uL (0-1.3); Monocytes % (auto) 9.5 % (0.0-12.0); Neutrophils # (auto) 5.2 10 ^3/uL (1.6-8.6); Neutrophils % (auto) 53.4 % (37.0-80.0); Nucleated Red Blood Cells % 0.1 %; Red Blood Cells 4.24 10^6/uL (4.0-5.20); White Blood Cell 9.7 10^3/uL (4.4-10.8)
[2023-11-13 22:17] LABS: Chloride 104 mmol/L (98-107); Potassium 3.8 mmol/L (3.5-5.1); Sodium 138 mmol/L (136-145)
[2023-11-13 22:18] LABS: Anion Gap 12 (5-15); Calcium 9.3 mg/dL (8.7-10.4); Carbon Dioxide 22 mmol/L (20-30)
[2023-11-13 22:23] LABS: BUN/Creatinine Ratio 11.3 (10.0-20.0); Blood Urea Nitrogen 23 mg/dL (9-23); Glucose 181 mg/dL (74-106); Lipase 36 U/L (12-53)
[2023-11-13 22:38] LABS: Lactic Acid w/Reflex 2.7 mmol/L (0.4-2.0)
[2023-11-13] MEDS: SODIUM CHLORIDE 0.9% 1,000 ML IV ONE (23:24)
[2023-11-13] MEDS: ONDANSETRON ODT 4 MG TAB PO ONE (23:24)
[2023-11-13] MEDS: DICYCLOMINE HCL (10MG/ML) 2 ML AMPULE IM ONE (23:30)
[2023-11-13 23:36] VITALS: BP 145/77; PULSE 76; RESP 18; TEMP 97.9; O2SAT 98
[2023-11-14 00:18] LABS: Urine Bacteria MANY /hpf (None Seen); Urine Blood 1+ /uL (Negative); Urine Clarity Turbid (Clear); Urine Color Light-Yellow (Yellow); Urine Mucus FEW (None Seen); Urine Protein, UAD 1+ (Negative); Urine Specific Gravity 1.023 (1.001-1.035); Urine Urobilinogen 2 mg/dL (Negative); Urine WBC 641 /hpf (0 - 5); Urine pH 5.5 (5.0-9.0)
[2023-11-14] MEDS ORDERED: IBUP-1455 PO (00:48)
[2023-11-14] MEDS ORDERED: BACDST PO (00:48)
[2023-11-14] MEDS ORDERED: ZOFR4T PO (00:48)
[2023-11-14] MEDS: SULFAMETHOX W/TRIMETH(800/160MG) DS TAB PO ONE (01:12)
== END 2023-11-14 01:18 | disposition home or self-care (01) ==
LOC: ER 20:32
DX: N39.0 Urinary tract infection, site not specified (principal); K86.2 Cyst of pancreas; E11.9 Type 2 diabetes mellitus without complications; I10 Essential (primary) hypertension; I25.2 Old myocardial infarction; Z88.0 Allergy status to penicillin; Z91.018 Allergy to other foods; Z79.899 Other long term (current) drug therapy
CPT/HCPCS: 36415; 74176; 80048; 81001; 83605; 83690; 83880; 84484; 85025; 96372; 99285; J0500